=== PATIENT | female | born 1970 | race Caucasian/White ===

== ENCOUNTER 2022-03-21 06:20 | Day surgery (SDC) | payer OTHER ==
[2022-03-05 14:28] VITALS: BMI 21.2
[2022-03-21] MEDS ORDERED: BUPIVACAINE HCL/EPINEPHRINE/PF 30 ML VIAL IJ ONE (07:22)
[2022-03-21] MEDS ORDERED: MIDAZOLAM HCL 2 MG/2 ML SINGLE DOSE VIAL ONE (07:39)
[2022-03-21] MEDS ORDERED: FENTANYL CITRATE/PF 50 MCG/ML VIAL ONE ×2 (07:39→11:02)
[2022-03-21] MEDS ORDERED: EPINEPHrine/PF 1 MG/1 ML (1:1,000) AMPULE ONE (07:45)
[2022-03-21] MEDS ORDERED: LIDOCAINE HCL 2% (20ML MULTI-DOSE VIAL) ONE (07:45)
[2022-03-21] MEDS ORDERED: SODIUM BICARBONATE 8.4% 50 MEQ/50 ML VIAL ONE (07:45)
[2022-03-21] MEDS ORDERED: ACETAMINOPHEN INJECTION 100 ML IVPB ONE (10:05)
[2022-03-21] MEDS ORDERED: PROPOFOL 20 ML ONE (10:21)
[2022-03-21] MEDS ORDERED: ONDANSETRON 4 MG/2 ML VIAL IVPUSH PRN (10:48)
[2022-03-21] MEDS ORDERED: oxyCODONE HCL 5 MG TABLET PO PRN (10:48)
[2022-03-21] MEDS ORDERED: LACTATED RINGERS SOLUTION 1,000 ML IV SCH (11:00)
[2022-03-21 11:37] VITALS: RESP 18; TEMP 97.6
[2022-03-21 11:53] VITALS: BP 100/62; PULSE 86
[2022-03-21] MEDS ORDERED: ACETAMINOPHEN 500 MG TABLET (FP) PO SCH (12:00)
== END 2022-03-21 12:20 | disposition home or self-care (01) ==
LOC: FASU 06:20
PROVIDERS: ATTEND Plastic Surgery
PROC: 0HQ7XZZ Repair Abdomen Skin, External Approach (ICD-10-PCS; 2022-03-21)
PROC: 0HRV37Z Replacement of Bilateral Breast with Autologous Tissue Substitute, Percutaneous Approach (ICD-10-PCS; 2022-03-21)
PROC: 0HQW0ZZ Repair Right Nipple, Open Approach (ICD-10-PCS; principal; 2022-03-21 08:41)
PROC: 0HX5XZZ Transfer Chest Skin, External Approach (ICD-10-PCS; 2022-03-21 08:41)
DX: Z85.3 Personal history of malignant neoplasm of breast (principal); Z90.13 Acquired absence of bilateral breasts and nipples; N65.0 Deformity of reconstructed breast
CPT/HCPCS: 94760

== ENCOUNTER 2023-05-01 08:36 | Day surgery (SDC) | payer OTHER ==
[2023-04-24 16:11] VITALS: BMI 22.1
[2023-05-01] MEDS ORDERED: ceFAZolin SODIUM 1 GM VIAL ONE (09:03)
[2023-05-01] MEDS ORDERED: VANCOMYCIN 1,000 MG VIAL (RESTRICTED TO ID ONLY) ONE (09:03)
[2023-05-01] MEDS ORDERED: BUPIVACAINE HCL/PF 2.5 MG/ML - 30 ML VIAL IJ ONE (09:04)
[2023-05-01] MEDS ORDERED: GENTAMICIN SO4 80 MG/2 ML VIAL ONE (09:04)
[2023-05-01] MEDS ORDERED: EPINEPHrine/PF 1 MG/1 ML (1:1,000) AMPULE ONE (09:04)
[2023-05-01] MEDS ORDERED: PROMETHAZINE HCL 25 MG/1 ML VIAL IVPB PRN (10:12)
[2023-05-01] MEDS ORDERED: MIDAZOLAM HCL 2 MG/2 ML SINGLE DOSE VIAL ONE (10:14)
[2023-05-01] MEDS ORDERED: PROPOFOL 40 ML ONE (10:14)
[2023-05-01] MEDS ORDERED: LACTATED RINGERS SOLUTION 1,000 ML IV SCH (10:15)
[2023-05-01] MEDS ORDERED: oxyCODONE HCL 5 MG TABLET PO PRN (10:23)
[2023-05-01] MEDS ORDERED: ACETAMINOPHEN 500 MG TABLET (FP) PO PRN (10:23)
[2023-05-01] MEDS ORDERED: FENTANYL CITRATE/PF 50 MCG/ML VIAL ONE (12:46)
[2023-05-01 13:39] VITALS: RESP 18; TEMP 97.4
[2023-05-01 14:46] VITALS: BP 102/66; PULSE 78
== END 2023-05-01 14:46 | disposition home or self-care (01) ==
LOC: FASU 08:36
PROVIDERS: ATTEND Plastic Surgery
PROC: 0HPT0JZ Removal of Synthetic Substitute from Right Breast, Open Approach (ICD-10-PCS; principal; 2023-05-01 10:52)
PROC: 0HRT0JZ Replacement of Right Breast with Synthetic Substitute, Open Approach (ICD-10-PCS; 2023-05-01 10:52)
PROC: 0WQF0ZZ Repair Abdominal Wall, Open Approach (ICD-10-PCS; 2023-05-01 10:52)
DX: T85.44XA Capsular contracture of breast implant, initial encounter (principal); Y82.8 Other medical devices associated with adverse incidents; Z85.3 Personal history of malignant neoplasm of breast; Z90.13 Acquired absence of bilateral breasts and nipples; N65.0 Deformity of reconstructed breast; K42.9 Umbilical hernia without obstruction or gangrene
CPT/HCPCS: 19342; 19371; 49591; L8600; 88300-TC; 88304-TC; 94760